=== PATIENT | female | born 1990 | race Caucasian/White ===

== ENCOUNTER 2016-07-27 06:46 | Outpatient (CLI) | payer OTHER ==
[2016-07-27] VITALS (7 sets, daily range): BP systolic 112–136; BP diastolic 74–92
[~2016-07-27] VITALS: Ht 167.6 cm; Wt 95.0 kg
[~2016-07-27 06:46] MED LIST: BACTRIM,SEPT1 TABLET PO; CHILDREN'S ASPI81 M1 PO; ENDOCET 5-3251 EACH PO; ESCITALOPRAM OX20 MG PO; FIORICET,ESG1 TABLET PO; FLEXERIL10 MG PO; IBUPROFEN800 MG PO; IRON18 MG PO; KEFLEX500 MG PO; MACROBID100 MG PO; MOTRIN800 MG PO; NO HOME MEDS; NORCO 5/3251 TABLET PO; PEN-VEE K,VEET500 MG PO; PRENATAL VITAM1 EAC5 PO; PROMETHAZINE HC25 M1 PO; VICODIN 5-3001 EACH PO; ZOFRAN4 MG PO
[2016-07-27 08:58] LABS: EOSINOPHIL (%) 1.1 % (0-5); EOSINOPHIL COUNT 0.1 K/uL (0-0.3); HEMATOCRIT 31.8 % (36.0-46.0); IMMATURE GRANULOCYTE (%) 0.8 % (0.0-0.7); IMMATURE GRANULOCYTE COUNT 0.1 K/uL; LYMPHOCYTE COUNT 2.1 K/uL (1.0-2.8); MCH 25.9 PG (29.0-34.0); MCHC 31.4 G/DL (30.0-36.0); MCV 82.4 FL (83-99); MEAN PLAT.VOLUME 11.7 uM^3 (9.5-12.4); MONOCYTE (%) 6.6 % (3-12); MONOCYTE COUNT 0.7 K/uL (0-0.8); NEUTROPHIL (%) 70.8 % (45-76); NEUTROPHIL COUNT 7.4 K/uL (1.8-6.4); PLATELET COUNT 228 K/uL (156-360); RBC DIS.WIDTH-CV 14.3 % (11.8-14.6); RBC DIS.WIDTH-SD 42.9 % (39-53); RED BLOOD COUNT 3.86 M/uL (3.80-5.20); WHITE BLOOD COUNT 10.4 K/uL (4.1-10.2)
== END 2016-07-27 16:00 | disposition home or self-care (01) ==
LOC: LDRP-OP 06:46 → 2WEST 06:47 → LDRP-OP 10:05 → 2WEST 16:00 → LDRP-OP 08-23 22:04
PROVIDERS: Nurse Practitioner
DX: O47.1 False labor at or after 37 completed weeks of gestation (principal); O99.89 Other specified diseases and conditions complicating pregnancy, childbirth and the puerperium; Z3A.40 40 weeks gestation of pregnancy
CPT/HCPCS: 59025; 85025; C1755; G0378; J7120

== ENCOUNTER 2016-08-04 07:13 | Inpatient (IN) | payer OTHER ==
[2016-08-04] VITALS (20 sets, daily range): BP systolic 108–134; BP diastolic 64–86
[~2016-08-04] VITALS: Ht 167.6 cm; Wt 96.1 kg
[2016-08-04 09:55] LABS: EOSINOPHIL (%) 0.5 % (0-5); EOSINOPHIL COUNT 0.1 K/uL (0-0.3); HEMATOCRIT 32.6 % (36.0-46.0); IMMATURE GRANULOCYTE (%) 0.7 % (0.0-0.7); IMMATURE GRANULOCYTE COUNT 0.1 K/uL; LYMPHOCYTE COUNT 2.4 K/uL (1.0-2.8); MCH 24.8 PG (29.0-34.0); MCHC 30.4 G/DL (30.0-36.0); MCV 81.7 FL (83-99); MEAN PLAT.VOLUME 11.4 uM^3 (9.5-12.4); MONOCYTE (%) 6.2 % (3-12); MONOCYTE COUNT 0.6 K/uL (0-0.8); NEUTROPHIL (%) 68.4 % (45-76); NEUTROPHIL COUNT 6.8 K/uL (1.8-6.4); PLATELET COUNT 236 K/uL (156-360); RBC DIS.WIDTH-CV 14.6 % (11.8-14.6); RBC DIS.WIDTH-SD 43.5 % (39-53); RED BLOOD COUNT 3.99 M/uL (3.80-5.20)
[2016-08-05] VITALS (10 sets, daily range): BP systolic 102–125; BP diastolic 59–80
[2016-08-05] MEDS ORDERED: MOTRIN800 MG PO (00:59)
[2016-08-06 07:42] VITALS: BP 128/81
[2016-08-06 14:37] VITALS: BP 115/76
[2016-08-06 23:21] VITALS: BP 129/71
[2016-08-07 07:43] VITALS: BP 129/88
[2016-08-07] MEDS ORDERED: BREAST PUMP MC (11:57)
== END 2016-08-07 13:31 | disposition home or self-care (01) | DRG 775 ==
LOC: LDRP-OP 07:13 → 2WEST 07:14 → LDRP-OP 08-23 16:48
PROVIDERS: Nurse Practitioner
PROC: 10907ZC Drainage of Amniotic Fluid, Therapeutic from Products of Conception, Via Natural or Artificial Opening (ICD-10-PCS; 2016-08-04)
PROC: 3E0P7GC Introduction of Other Therapeutic Substance into Female Reproductive, Via Natural or Artificial Opening (ICD-10-PCS; 2016-08-04)
PROC: 3E0S3BZ Introduction of Anesthetic Agent into Epidural Space, Percutaneous Approach (ICD-10-PCS; 2016-08-04)
PROC: 10E0XZZ Delivery of Products of Conception, External Approach (ICD-10-PCS; principal; 2016-08-05)
DX: O48.0 Post-term pregnancy (principal); E72.12 Methylenetetrahydrofolate reductase deficiency; F33.9 Major depressive disorder, recurrent, unspecified; O23.43 Unspecified infection of urinary tract in pregnancy, third trimester; O99.354 Diseases of the nervous system complicating childbirth; O99.284 Endocrine, nutritional and metabolic diseases complicating childbirth; Z37.0 Single live birth; Z3A.41 41 weeks gestation of pregnancy; F41.9 Anxiety disorder, unspecified; O99.344 Other mental disorders complicating childbirth; K21.9 Gastro-esophageal reflux disease without esophagitis; O99.62 Diseases of the digestive system complicating childbirth; R10.32 Left lower quadrant pain; D50.9 Iron deficiency anemia, unspecified; O99.013 Anemia complicating pregnancy, third trimester; G43.909 Migraine, unspecified, not intractable, without status migrainosus; O69.81X1 Labor and delivery complicated by cord around neck, without compression, fetus 1
CPT/HCPCS: 85025; C1755; G0378; J1200; J3010; J7120